=== PATIENT | male | born 1960 | race Caucasian/White ===

== ENCOUNTER 2020-12-03 15:05 | Emergency (ER) | payer OTHER ==
[~2020-12-03] VITALS: Ht 182.9 cm; Wt 56.7 kg
[2020-12-03] MEDS ORDERED: NITROGLYCERIN LINGUAL 400 mCg/SPRAY SL STA (15:18)
[2020-12-03 15:19] VITALS: BP_SYST 113
--- NOTE | 2020-12-03 15:20 | NUR ---
Patient triaged and placed in ER [facility] WITH [facility]. . VSS and patient appears in no acute distress at this time. awaiting available bed, and MD GARCIA notified of need for MSE.
--- NOTE | 2020-12-03 15:21 | NUR ---
TAMAR GARCIA at bedside examining patient.
--- NOTE | 2020-12-03 15:22 | NUR ---
PATIENT BROUGHT IN BY [facility] FOR DULL SUBSTERNAL CHEST PAIN NON RADIATING WITH NAUSEA AFTER WASHING CAR 1 HOUR AGO. GIVEN 325 MG OF ASPIRIN AND 3 SPRAYS OF NITRO. PAIN NOW 3/. HX OF HYPERLIPIDEMIA. PATIENT IS PARTIALLY COVID VACCINATED. ARRIVED WITH 18 GUAGE TO LEFT . PATIENT AOX4 ABLE TO SPEAK FULL SENTENCES
--- NOTE | 2020-12-03 15:26 | NUR ---
STEMI PROTOCOL INITIATED AT THIS TIME.
[2020-12-03] MEDS ORDERED: MORPHINE 2 MG/ML INJ. SYRINGE IVP ONE (15:30)
[2020-12-03] MEDS ORDERED: ASPIRIN 81 MG TAB.CHEW PO ONE (15:30)
[2020-12-03] MEDS ORDERED: NACL 0.9% 1,000 ML IV ONE (15:30)
[2020-12-03] MEDS ORDERED: NITROGLYCERIN 250 ML IV ONE (15:30)
[2020-12-03] MEDS ORDERED: NS 500 ML IV ONE (15:30)
[2020-12-03] MEDS ORDERED: NITROGLYCERIN 1 INCH (GM) OINT. TP ONE (15:30)
--- NOTE | 2020-12-03 15:30 | NUR ---
NITRO SPRAY GIVEN AT THIS TIME. VSS.
[2020-12-03 15:36] LABS: BASOPHILS % (AUTO) 0.4 % (0.0-2.0); EOSINOPHILS % (AUTO) 0.4 % (0.0-4.0); HEMATOCRIT 43.6 % (36-54); LYMPHOCYTES # (AUTO) 1.2 K/uL (1.0-5.5); LYMPHOCYTES % (AUTO) 13.6 % (20.5-51.5); MEAN CORPUSCULAR HEMOGLOBIN 32 pg (27-31); MEAN CORPUSCULAR HGB CONC 34 % (32-36); MEAN CORPUSCULAR VOLUME 93 fL (79.0-98.0); MONOCYTES # (AUTO) 0.5 K/uL (0.0-1.0); MONOCYTES % (AUTO) 5.4 % (1.7-9.3); NEUTROPHILS % (AUTO) 80.2 % (40.0-70.0); PLATELET COUNT (AUTO) 163 K/uL (130-430); RED BLOOD CELL COUNT(AUTO) 4.69 MIL/uL (4.2-6.2); RED CELL DISTRIBUTION WIDTH 12.7 % (9.0-15.0); WHITE BLOOD COUNT (AUTO) 8.7 K/uL (4.8-10.8)
--- NOTE | 2020-12-03 15:40 | NUR ---
Second spray of Nitro given at this time, chest pain level 3/10 at this time, MD notified.
[2020-12-03 15:43] VITALS: BP_SYST 115
--- NOTE | 2020-12-03 15:49 | NUR ---
Patient to be transferred to [facility]. Is being transferred due to higher level of care. Receiving facility has accepting physician and available space. ER physician has signed transfer form. Patient or responsible constitution party has agreed to transfer and signed form. Patient belongings inventoried and will be sent with patient. Copy of nursing notes, lab reports, EKG, Physicians Orders and X-rays to be sent with patient. Report called to BETTINA HAINES, at receiving facility. Receiving physician is SEBASTIAN. 911 CALLED SQ [id number] ARRIVED AT [id number]
[2020-12-03 16:08] LABS: CALCIUM 9.2 mg/dL (8.4-11.0); CREATININE 1.18 mg/dL (0.55-1.30); POTASSIUM 4.4 mmol/L (3.5-5.1)
[2020-12-03 16:14] LABS: TOTAL BILIRUBIN 0.7 mg/dL (0.0-1.0)
== END 2020-12-03 15:43 | disposition short-term general hospital (02) ==
LOC: SED 15:05
DX: I21.09 ST elevation (STEMI) myocardial infarction involving other coronary artery of anterior wall (principal); Z88.0 Allergy status to penicillin; Z79.899 Other long term (current) drug therapy
CPT/HCPCS: 36415; 71045; 80053; 83880; 84484; 85025; 93005; 96361; 96374; 99291; J2270; J7030